=== PATIENT | female | born 1990 | race Caucasian/White ===

== ENCOUNTER 2025-03-02 10:44 | Outpatient (AMB) | payer OTHER, SELFPAY ==
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
[2025-03-02 10:58] VITALS: BP 122/72; PULSE 105; RESP 13; TEMP 36.6; O2SAT 98; BMI 45.9
== END 2025-03-02 12:47 | disposition home or self-care (01) ==
LOC: HO.HMCFM 10:45
PROVIDERS: PCP Nurse Practitioner Family; Visit Provider Nurse Practitioner Family
DX: R07.9 Chest pain, unspecified (principal); F31.9 Bipolar disorder, unspecified; E66.01 Morbid (severe) obesity due to excess calories; Z68.42 Body mass index [BMI] 45.0-49.9, adult; F19.10 Other psychoactive substance abuse, uncomplicated; Z76.89 Persons encountering health services in other specified circumstances; Z80.8 Family history of malignant neoplasm of other organs or systems; Z80.49 Family history of malignant neoplasm of other genital organs; Z80.7 Family history of other malignant neoplasms of lymphoid, hematopoietic and related tissues; Z86.74 Personal history of sudden cardiac arrest; R94.31 Abnormal electrocardiogram [ECG] [EKG]; R06.09 Other forms of dyspnea

== ENCOUNTER → 2025-03-02 10:44 | Outpatient (BNVA) | payer OTHER, SELFPAY | PROVIDERS: PCP Nurse Practitioner Family; Visit Provider Nurse Practitioner Family | DX: Z13.89 Encounter for screening for other disorder (principal) | CPT/HCPCS: 93005; 96127; 99202 ==

== ENCOUNTER 2025-03-02 12:53 | Outpatient (REF) | payer OTHER, SELFPAY ==
[2025-03-02 14:30] LABS: Hematocrit 40.7 % (37.0-47.0); Hemoglobin 13.7 g/dl (12.0-16.0); Mean Corpuscular HGB Conc 33.7 g/dl (31.0-35.0); Mean Corpuscular Hemoglobin 29.5 pg (27.0-33.0); Mean Corpuscular Volume 87.7 fL (80.0-98.0); Mean Platelet Volume 9.4 fL (9.4-12.3); Platelet Count 311 X10*3/uL (160-400); Red Blood Count 4.64 X10*6/uL (4.20-5.50); Red Cell Distribution Width 12.2 % (11.0-16.0); White Blood Count 12.8 X10*3/uL (4.8-10.8)
[2025-03-02 14:54] LABS: Troponin-I High Sensitivity < 2.7 ng/L (<3.5-17.0)
[2025-03-02 15:12] LABS: Alanine Aminotransferase 19 U/L (0-31); Albumin Level 4.2 g/dL (3.5-5.0); Alkaline Phosphatase 101 U/L (39-117); Anion Gap 13 (12-20); Aspartate Amino Transferase 23 U/L (5-31); Bilirubin Total 0.4 mg/dL (0.0-1.0); Blood Urea Nitrogen 10 mg/dL (9-16); Calcium 9.2 mg/dL (8.4-10.2); Carbon Dioxide 26 mmol/L (22-29); Chloride 105 mmol/L (96-108); Estimated Glomerular Filt Rate > 60; Glucose Random 87 mg/dL (60-115); Magnesium 1.9 mg/dL (1.6-2.6); Phosphorus 3.3 mg/dL (2.7-4.5); Potassium 3.8 mmol/L (3.3-5.1); Sodium 140 mmol/L (135-145); Total Protein 7.4 g/dL (6.5-8.0)
[2025-03-02 15:22] LABS: Folate 3.8 ng/mL (> or = 4.0); Vitamin B12 301 pg/mL (200-900)
[2025-03-02 15:24] LABS: Ferritin 73 ng/mL (10-122); TSH reflex Free T4 0.82 uIU/mL (0.32-4.0)
== END 2025-03-02 12:54 | disposition home or self-care (01) ==
LOC: HO.WFDLDS 12:53
PROVIDERS: Visit Provider Nurse Practitioner Family
DX: R07.9 Chest pain, unspecified (principal); R06.09 Other forms of dyspnea; R94.31 Abnormal electrocardiogram [ECG] [EKG]; F31.9 Bipolar disorder, unspecified; R07.89 Other chest pain; F19.10 Other psychoactive substance abuse, uncomplicated; E66.01 Morbid (severe) obesity due to excess calories; Z68.42 Body mass index [BMI] 45.0-49.9, adult; Z76.89 Persons encountering health services in other specified circumstances; Z86.74 Personal history of sudden cardiac arrest; Z80.8 Family history of malignant neoplasm of other organs or systems; Z80.49 Family history of malignant neoplasm of other genital organs; Z80.7 Family history of other malignant neoplasms of lymphoid, hematopoietic and related tissues
CPT/HCPCS: 36415; 80053; 82550; 82607; 82728; 82746; 83735; 84100; 84443; 84484; 85027; 93005; 96127; 99202

== ENCOUNTER 2025-03-21 10:33 | Outpatient (AMB) | payer OTHER, SELFPAY ==
--- NOTE | 2025-03-21 10:41 | MHC.OFFVIS ---
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 hx card arrest [employer] Finisher Required: No Accompanied by: Self / Same As Patient Allergies doxycycline Allergy (Severe, Verified 03/02/25 11:16) Vomiting amoxicillin [AMOXICILLIN] Allergy (Unknown, Verified 03/02/25 11:16) HIVES Sulfa (Sulfonamide Antibiotics) Allergy (Unknown, Verified 03/02/25 11:16) Unknown sulfamethoxazole [From BACTRIM] Allergy (Unknown, Verified 03/02/25 11:16) HIVES trimethoprim [From BACTRIM] Allergy (Unknown, Verified 03/02/25 11:16) HIVES Medication List - Last Reconciled 03/21/25 by Chad Cheema MD folic acid 1 mg PO DAILY methadone 130 mg PO HPI Comments Details: Vaishali is here for cardiac consultation. She has been referred for evaluation of chest pain as well as prolonged QT on the EKG. There is a history of heroin use several years ago and she has been on methadone for the last 8-9 years. In 2019, it seems that she was admitted to [facility] with loss of consciousness/syncope. Per notes, it seems patient had CPR by her father but pulse was not checked at that time. There was apparently violent shakiness at the body. Involuntary bowel movements. At that time, per notes EKG had revealed a prolonged QT of 600 milliseconds with ectopic beats. There was question of methadone induced serotonin syndrome. There was also concern for electrolyte abnormalities. Eventually, it seems she was stable but QT was still in the 500s. Subsequently, she has not had any cardiology follow-up. Overall, it seems has been mostly stable. No recurrent issues from a QT standpoint. No recurrent syncope. She does feel some chest pains which are random and can happen any time but more so from stress than exertion. Shortness of breath with moderate to severe exertion but she also states that she gained a lot of weight. Occasional chest fluttering. There is no family history of prolonged QT. She is on methadone. 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 QT prolongation Serotonin syndrome Suicide attempt Surgical History (Reviewed 03/21/25 @ 10:46 by Shelbie Thomas [facility]) [place] teeth removed Previous section Family History (Reviewed 03/21/25 @ 10:46 by Shelbie Thomas [facility]) Mother HTN (hypertension) High cholesterol Substance abuse Father HTN (hypertension) High cholesterol Diabetes Cardiovascular disease Thyroid disorder Cancer Substance abuse Maternal Grandmother HTN (hypertension) Cardiovascular disease Paternal Grandfather HTN (hypertension) High cholesterol Cardiovascular disease Substance abuse Paternal Grandmother HTN (hypertension) High cholesterol Cardiovascular disease Thyroid disorder Cancer Maternal Grandfather HTN (hypertension) Sister Substance abuse Other Mental health disorder Social History (Reviewed 03/21/25 @ 10:46 by Shelbie Thomas [facility]) Household Members: Children Both parents involved: No Caregiver staying overnight: No Housing: House Are you a primary critical care rn to a significant other at home: No Do you presently have visiting nurse or other home services: No 75 years or older and lives alone: No Alcohol intake: never Patient Tobacco Use Status: Never used Tobacco e-Cigarette/Vaping Use: Never Used Second Hand Smoke Exposure: No service: No Current occupational status: unemployed Current occupational exposures/hazards: No Cognitive needs: No Hearing needs: No Vision needs: No Review of Systems Const Denies chills, Reports fatigue, Denies fever(s), Denies frequent falls, Denies weakness, Denies weight gain and Denies weight loss ENT Reports dizziness Card Reports chest pain, Reports chest pain with activity, Reports rapid heart rate, Denies leg edema, Reports lightheadedness, Reports palpitations, Reports dyspnea, Reports dyspnea on exertion and Denies orthopnea Resp Denies cough, Reports dyspnea and Reports dyspnea on exertion GI Denies bloating and Denies change in bowel habits Musc Denies muscle weakness, Denies numbness and Denies tingling Neuro Reports dizziness, Denies frequent falls, Denies numbness, Denies tingling and Denies weakness Endo Reports fatigue and Reports palpitations Physical Exam Vital Signs: Last Vital Signs Pulse 100 03/21/25 10:43 BP 124/72 03/21/25 10:43 BMI result Body Mass Index 46.0 Const General: comfortable and no acute distress Orientation/consciousness: patient oriented x3 HEENT Other: Unremarkable Head: Yes normal to inspection Neck Neck: Yes normal visual inspection Chest Chest palpation & inspection: normal inspection of the chest Resp Auscultation: clear to auscultation bilaterally Cardio Palpation: normal PMI Heart sounds: S1 normal heart sound present, S2 normal heart sound present, no gallops, no murmurs and no rubs GI Palpation (GI): Soft to palpation Back/Spine/Pelvis Other: unremarkable Skin General skin exam: no rashes or lesions noted Neuro General: patient oriented x3 Extrem General: Yes normal to inspection Psych Mental Status: mental status grossly normal Assessment & Plan Assessment & Plan (1) QT prolongation: Code(s): R94.31 - Abnormal electrocardiogram [ECG] [EKG] Category: Medical (2) History of cardiac arrest: Code(s): Z86.74 - Personal history of sudden cardiac arrest Category: Medical (3) Chest pain: Code(s): R07.9 - Chest pain, unspecified Category: Medical Qualifiers: Chest pain type: unspecified Qualified Code(s): R07.9 - Chest pain, unspecified Plan In the recent EKG from [facility], corrected QT was 487 milliseconds. In another EKG from [place], corrected QT was 489 milliseconds. Per [facility] notes, QT was about 600 milliseconds in 2019 when she had admission for cardiac arrest. Overall, not entirely clear if the cardiac arrest event was related to ventricular tachycardia/fibrillation related to prolonged QT. any case, there has been no recurrence for the last 6 years. QT is still prolonged but not as much. Could all be from methadone. Less likely congenital. So main strategy would be to try to wean off methadone as much able. We discussed about this today. For workup, we will do an echocardiogram for cardiac function. Coronary CTA. Holter monitor for any ventricular ectopy/VT. Once these are completed, consider EP referral. Discussed with patient and she is agreeable with this. Discussion Notes I discussed with the patient that the prolonged QT syndrome could potentially be related to her long-term methadone use. I explained the planned sequence of diagnostics, including a CT scan of the heart for accurate assessment and a Holter monitor to evaluate her rhythm over several days. The echocardiogram will help visualize any structural heart issues. I highlighted the benefit of accurate diagnosis against the risk of continued methadone use, which may prolong her QT interval further. We agreed that the CT scan was preferable to a stress test due to its more definitive nature, pending insurance approval, and that this will be coordinated through her primary care. The patient consented to proceed with the outlined diagnostic plan. Patient was informed and verbally consented to the use of an ambient scribe for clinic note documentation during this visit. Orders: Orders CT Cardiac Coronary Angio Today R07.9 - Chest pain, unspecified, Z86.74 - Personal history of sudden cardiac arrest ECG 3 day holter monitor Today R07.9 - Chest pain, unspecified, R94.31 - Abnormal electrocardiogram [ECG] [EKG] CA echo transthoracic complete 03/02/25 F11.90 - Opioid use, unspecified, uncomplicated, R06.09 - Other forms of dyspnea, R07.9 - Chest pain, unspecified, R94.31 - Abnormal electrocardiogram [ECG] [EKG], Z86.74 - Personal history of sudden cardiac arrest Basic Metabolic Panel Today R07.9 - Chest pain, unspecified Patient Instructions: - Undergo the scheduled CT scan, Holter monitoring, and echocardiogram to assess your heart condition. - Report any new or worsening symptoms, such as fainting or increased chest pain, immediately. - Minimize stress and manage anxiety as much as possible. - Follow up with your primary care physician or specialist as directed. Coding Level of Care Code New Pt Level 4 (10656) Complex EM visit Add On G2211 Diagnoses QT prolongation R94.31 History of cardiac arrest Z86.74 Chest pain, unspecified type R07.9 Chest pain type: unspecified
[2025-03-21 10:43] VITALS: BP 124/72; PULSE 100; BMI 46.0
== END 2025-03-21 11:10 | disposition home or self-care (01) ==
LOC: HO.HCS 10:34
PROVIDERS: PCP Nurse Practitioner Family; Visit Provider Internal Medicine
DX: R94.31 Abnormal electrocardiogram [ECG] [EKG] (principal); Z86.74 Personal history of sudden cardiac arrest; R07.9 Chest pain, unspecified
CPT/HCPCS: 99204; G2211

== ENCOUNTER → 2025-03-21 10:33 | Outpatient (BNVA) | payer OTHER, SELFPAY | PROVIDERS: PCP Nurse Practitioner Family; Visit Provider Internal Medicine | DX: R07.9 Chest pain, unspecified (principal); R94.31 Abnormal electrocardiogram [ECG] [EKG]; F11.90 Opioid use, unspecified, uncomplicated; Z86.74 Personal history of sudden cardiac arrest | CPT/HCPCS: 99202 ==

== ENCOUNTER → 2025-03-30 10:48 | Outpatient (REF) | payer OTHER, SELFPAY ==
--- NOTE | 2025-03-30 10:56 | CA_ITS ---
Transthoracic Echocardiogram Patient (Last, First, Middle): Vaishali Garza, Gender: Female Date of : 1990 Age: 35 Procedure Date: 03/30/2025 Procedure Type: Transthoracic Echocardiogram Location: OP Height: 152. cm Weight: 106.6 kg BSA: 2.00 m2 Heart Rate: 61 bpm BP: 100 / 50 mmHg Assistant Professor Of Sociology: MARLEE Referring MD: Chad Cheema MD Symptoms: R07.9 - Chest pain, unspecified Study Quality: Adequate ECG Rhythm: Sinus Conclusions: - The left ventricular systolic function is normal. The calculated ejection fraction is 63% by biplane method. - No obvious valvular pathology seen on this study. Findings Left Ventricle Normal left ventricular cavity size. There is normal left ventricular wall thickness. The left ventricular systolic function is normal. The calculated ejection fraction is 63% by biplane method. There is no evidence of regional wall motion abnormalities. Diastolic function is normal for age. Right Ventricle Normal right ventricular cavity size and systolic function. Atria Both atria are normal in size. Aortic Valve There is a normal trileaflet aortic valve. There is no aortic valve stenosis. There is no aortic valve regurgitation. Mitral Valve The mitral valve appears normal. There is no mitral valve regurgitation. There is no mitral valve stenosis. Pulmonic Valve The pulmonic valve is likely normal. Tricuspid Valve There is trace tricuspid valve regurgitation. There is no evidence of pulmonary hypertension. Great Vessels The asc aorta is normal in size. Venous The inferior vena cava is normal in size and collapses greater than 50% with inspiration. Pericardium/Pleural There is no evidence of pericardial effusion. Prior Study Comparison No prior study available for comparison. Recommendations, Care & Conclusions No obvious valvular pathology seen on this study. Measurements 2D Linear Measurements IVSd: 0.80 0.6-0.9/0.6-1.0 cm LVIDd: 5.13 3.9-5.3/4.2-5.9 cm LVIDd Index: 2.57 2.4-3.2/2.2-3.1 cm/m2 LVIDs: 3.32 2.0-3.6 cm LVPWd: 0.86 0.7-1.1 cm LA Diam: 3.10 2.7-3.8/3.0-4.0 cm LAIDs Index: 1.55 1.5-2.3 cm/m2 LV Mass: 184.16 67-162/88-224 g LV Mass Index: 92.08 43-95/49-115 g/m2 LVOT Diam: 2.10 3.0+(-)1.3 cm 2D Systolic Function EF 4C: 62.90 >55% EF 2C: 61.80 >55% EF BiP: 62.90 >55% Mitral Valve MV Pk E: 0.92 MV PK A: 0.57 MV Decel Time: 234.00 E/A: 1.60 E'Lateral: 14.60 E'Medial: 11.00 E/E' Med: 8.30 E/E' Lat: 6.30 PHT: 69.00 MVA PHT: 3.19 Decel [place]: 3.91 Aortic Valve AoV Pk Karlos: 1.19 AoV Mn Karlos: 0.91 AoV VTI: 0.28 AoV Pk Grad: 6.00 Aov Mn Grad: 4.00 JOELLE Cont.VTI: 2.90 LVOT LVOT Pk Karlos: 1.03 LVOT Mn Karlos: 0.72 LVOT VTI: 0.24 LVOT Pk Grad: 4.00 LVOT Mn Grad: 2.00 LVOT Diam: 2.10 LVOT Area: 3.46 Diastolic Function MV Pk E: 0.92 MV Pk A: 0.57 E/A: 1.60 E'Medial: 11.00 E/E' Med: 8.30 E' Laterial: 14.60 E/E' Lat: 6.30 Right Ventricle TAPSE (mm): 21.70 TVS' Karlos: 12.80 Tricuspid Valve TR Pk Karlos: 1.78 TR Pk Grad: 13.00 RA Press: 3.00 RVSP: 16.00 Great Vessels Aorta Sinus of Valsalva: 3.00 2.0-3.5 cm Ao Asc: 3.20 2.1-3.4 cm Pulmonary Valve PV Pk Karlos: 1.11 Peak PV Grad: 5.00 Updated in Other Vendor System with Status of Final Chad Cheema MD electronically signed on 03/31/2025 1:01:46 PM with status of Final
== END ==
LOC: HO.CARD 10:48
PROVIDERS: PCP Nurse Practitioner Family; Visit Provider Internal Medicine
DX: R07.9 Chest pain, unspecified (principal); R94.31 Abnormal electrocardiogram [ECG] [EKG]; R06.09 Other forms of dyspnea; F11.90 Opioid use, unspecified, uncomplicated; Z86.74 Personal history of sudden cardiac arrest
CPT/HCPCS: 93242; 93306

== ENCOUNTER → 2025-03-30 10:56 | Outpatient (BNV) | payer OTHER, SELFPAY | PROVIDERS: PCP Nurse Practitioner Family; Visit Provider Internal Medicine | DX: R07.9 Chest pain, unspecified (principal) | CPT/HCPCS: 93306 ==

== ENCOUNTER 2025-08-27 08:44 | Outpatient (AMB) | payer OTHER, SELFPAY ==
[2025-08-27 09:01] VITALS: BP 122/66; PULSE 90; BMI 45.2
--- NOTE | 2025-08-27 09:01 | A.OFFVIS_ITS ---
Vital Signs 08/27/25 09:01 Height 5 ft Weight 231 lb 7.766 oz BMI 45.2 BP 122/66 Blood Pressure Location Lt brachial Position Sitting Pulse 90 Pulse Source Pulse Oximeter Intake Visit Reasons: s/p cta/ echo/ holter r/s 06-11-25 Allergies doxycycline Allergy (Severe, Verified 03/02/25 11:16) Vomiting amoxicillin (AMOXICILLIN) Allergy (Unknown, Verified 03/02/25 11:16) HIVES Sulfa (Sulfonamide Antibiotics) Allergy (Unknown, Verified 03/02/25 11:16) Unknown sulfamethoxazole (From BACTRIM) Allergy (Unknown, Verified 03/02/25 11:16) HIVES trimethoprim (From BACTRIM) Allergy (Unknown, Verified 03/02/25 11:16) HIVES Medication List - Last Reconciled 08/27/25 by Chad Cheema MD methadone 130 mg PO HPI Comments Details: Vaishali returns for follow-up. Recently seen in consultation regarding chest pain as well as prolonged QT on the EKG. There is a history of heroin use several years ago and she has been on methadone for the last 8-9 years. In 2019, it seems that she was admitted to [facility] with loss of consciousness/syncope. Per notes, it seems patient had CPR by her father but pulse was not checked at that time. There was apparently violent shakiness at the body. Involuntary bowel movements. At that time, per notes EKG had revealed a prolonged QT of 600 milliseconds with ectopic beats. There was question of methadone induced serotonin syndrome. There was also concern for electrolyte abnormalities. Eventually, it seems she was stable but QT was still in the 500s. Subsequently, she has not had any cardiology follow-up. Overall, it seems has been mostly stable. No recurrent issues from a QT standpoint. No recurrent syncope. She does feel some chest pains which are random and can happen any time but more so from stress than exertion. Shortness of breath with moderate to severe exertion but she also states that she gained a lot of weight. Occasional chest fluttering. There is no family history of prolonged QT. She is on methadone. Since last seen, she has completed an echocardiogram, coronary CTA and Holter. 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 QT prolongation Serotonin syndrome Suicide attempt Surgical History [place] teeth removed Previous section Family History (Updated 08/27/25 @ 09:06 by Helen Tejada) Mother HTN (hypertension) High cholesterol Substance abuse Father HTN (hypertension) High cholesterol Diabetes Cardiovascular disease Thyroid disorder Cancer Substance abuse Maternal Grandmother HTN (hypertension) Cardiovascular disease Paternal Grandfather HTN (hypertension) High cholesterol Cardiovascular disease Substance abuse Paternal Grandmother HTN (hypertension) High cholesterol Cardiovascular disease Thyroid disorder Cancer Maternal Grandfather HTN (hypertension) Sister Substance abuse Other Mental health disorder Social History Household Members: Children Both parents involved: No Caregiver staying overnight: No Housing: House Are you a primary student career development specialist to a significant other at home: No Do you presently have visiting nurse or other home services: No 75 years or older and lives alone: No Alcohol intake: never Patient Tobacco Use Status: Never used Tobacco e-Cigarette/Vaping Use: Never Used Second Hand Smoke Exposure: No service: No Current occupational status: unemployed Current occupational exposures/hazards: No Cognitive needs: No Hearing needs: No Vision needs: No Review of Systems Const Denies weakness ENT Denies dizziness Card Denies chest pain, Denies chest pain with activity, Denies syncope, Denies rapid heart rate, Denies pedal edema, Denies edema, Denies leg edema, Denies lightheadedness, Denies palpitations, Denies dyspnea, Denies dyspnea on exertion and Denies orthopnea Resp Denies cough, Denies dyspnea and Denies dyspnea on exertion GI Denies hematochezia and Denies change in stool character Musc Denies abnormal gait, Denies muscle cramps, Denies muscle weakness, Denies numbness, Denies radiating pain into limb and Denies tingling Neuro Denies abnormal gait, Denies dizziness, Denies syncope, Denies numbness, Denies tingling and Denies weakness Endo Denies palpitations Physical Exam Vital Signs: Last Vital Signs Pulse 90 08/27/25 09:01 BP 122/66 08/27/25 09:01 BMI result Body Mass Index 45.2 Const General: comfortable and no acute distress Orientation/consciousness: patient oriented x3 HEENT Other: Unremarkable Head: Yes normal to inspection Neck Neck: Yes normal visual inspection Chest Chest palpation & inspection: normal inspection of the chest Resp Auscultation: clear to auscultation bilaterally Cardio Palpation: normal PMI Heart sounds: S1 normal heart sound present, S2 normal heart sound present, no gallops, no murmurs and no rubs GI Palpation (GI): Soft to palpation Back/Spine/Pelvis Other: unremarkable Skin General skin exam: no rashes or lesions noted Neuro General: patient oriented x3 Extrem General: Yes normal to inspection Psych Mental Status: mental status grossly normal Office Procedures EKG Details: EKG shows sinus rhythm at 81/Min. There is baseline artifact. Truly difficult to assess the QT as we cannot clearly see the end of T-wave but computerized corrected QT is 453 milliseconds. [id number], Complete Assessment & Plan Assessment & Plan (1) QT prolongation: Code(s): R94.31 - Abnormal electrocardiogram [ECG] [EKG] Category: Medical (2) History of cardiac arrest: Code(s): Z86.74 - Personal history of sudden cardiac arrest Category: Medical (3) Chest pain: Code(s): R07.9 - Chest pain, unspecified Category: Medical Qualifiers: Chest pain type: unspecified Qualified Code(s): R07.9 - Chest pain, unspecified Plan Cardiac studies reviewed. In the recent EKG from [facility], corrected QT was 487 milliseconds. In another EKG from [place], corrected QT was 489 milliseconds. Per [facility] notes, QT was about 600 milliseconds in 2019 when she had admission for cardiac arrest. In today's EKG, quality is less than optimal but automated read is within range. In the echocardiogram, LVEF is 63% and no abnormalities otherwise. In the Holter, sinus rhythm with an average rate of 66/Min with frequent PACs. Rare PVCs. In the coronary CTA, no definite CAD. Overall, not entirely clear if the cardiac arrest event was related to ventricular tachycardia/fibrillation related to prolonged QT. Any case, there has been no further issue for the last 6 years. There was no evidence of NSVT or malignant findings in the Holter. Mild QT prolongation in previous EKGs but nothing evident today's EKG although quality suboptimal. Likely all related to methadone and much less likely to be congenital. Hence main strategy would be to cut back on methadone and we have discussed about this. If any other concerns she will contact us but we can see her back in one year for EKG check. Discussion Notes I discussed with the patient that the QT interval has improved from previous measurements, but it is important to continue monitoring. We will perform an EKG today to evaluate the current QT interval. I also mentioned the possibility of switching from methadone to alternative medications that don't affect QT. Patient was informed and verbally consented to the use of an ambient scribe for clinic note documentation during this visit. Patient Instructions: - Continue current medications unless advised otherwise. - FU in 1 year. - Consider discussing alternative medications with your healthcare provider. Coding Level of Care Code Est Pt Level 4 (55655) Complex EM visit Add On G2211 Diagnoses QT prolongation R94.31 History of cardiac arrest Z86.74 Chest pain, unspecified type R07.9 Chest pain type: unspecified CPT Codes EKG - CPT: [id number], Complete ([id number])
== END 2025-08-27 09:27 | disposition home or self-care (01) ==
LOC: HO.HCS 08:45
PROVIDERS: PCP Nurse Practitioner Family; Visit Provider Internal Medicine
DX: R94.31 Abnormal electrocardiogram [ECG] [EKG] (principal); Z86.74 Personal history of sudden cardiac arrest; R07.9 Chest pain, unspecified
CPT/HCPCS: 93010; 99214; G2211

== ENCOUNTER → 2025-08-27 08:44 | Outpatient (BNVA) | payer OTHER, SELFPAY | PROVIDERS: PCP Nurse Practitioner Family; Visit Provider Internal Medicine | DX: I45.81 Long QT syndrome (principal); R07.9 Chest pain, unspecified; Z86.74 Personal history of sudden cardiac arrest; R94.31 Abnormal electrocardiogram [ECG] [EKG] | CPT/HCPCS: 93005; 99212 ==